=== PATIENT | female | born 1960 | race Caucasian/White ===

== ENCOUNTER 2018-02-27 08:09 | Day surgery (SDC) ==
[2018-02-27] MEDS ORDERED: LIDOCAINE 1% 20 ML MDV ID STA (09:06)
[2018-02-27] MEDS ORDERED: VERSED ONE (10:15)
[2018-02-27] MEDS ORDERED: DIPRIVAN 20 ML VIAL IVP ONE (10:15)
[2018-02-27] MEDS ORDERED: SUBLIMAZE ONE (10:15)
--- NOTE | 2018-02-28 10:34 | PN ---
PROCEDURE: EGD (ESOPHAGOGASTRODUODENOSCOPY) WITH CARTER DILATATION. ENDOSCOPIST: Chata BOLTON M.D. INDICATION: DYSPHAGIA. INSTRUMENT: GIFH-190. MEDICATION: PER ANESTHESIA. PROCEDURE: The patient was positioned for endoscopy. The oropharynx was sprayed with Cetacaine spray and the endoscope was advanced through the bite block into the esophagus and from there advanced to the duodenum. The duodenum was normal. The pylorus was patent. The antrum was normal. Retroflex exam reveals a normal cardia. The z-line was noted to be at 37 cm. The remaining esophagus was normal. A 48 Cam[place] Carter was passed with mild resistance at the GE junction. She tolerated the procedure without immediate complication. PLAN: 1. Repeat dilatation as needed. 2. Continue proton pump inhibitor MTDD
--- NOTE | 2018-02-28 10:41 | OP ---
PROCEDURE: EGD (ESOPHAGOGASTRODUODENOSCOPY) WITH CARTER DILATATION. ENDOSCOPIST: Chata BOLTON M.D. INDICATION: DYSPHAGIA. INSTRUMENT: GIFH-190. MEDICATION: PER ANESTHESIA. PROCEDURE: The patient was positioned for endoscopy. The oropharynx was sprayed with Cetacaine spray and the endoscope was advanced through the bite block into the esophagus and from there advanced to the duodenum. The duodenum was normal. The pylorus was patent. The antrum was normal. Retroflex exam reveals a normal cardia. The Z-line was noted to be at 37 cm. The remaining esophagus was normal. A 48 Kenyan Carter was passed with mild resistance at the GE junction. She tolerated the procedure without immediate complication. PLAN: 1. Repeat dilatation as needed. 2. Continue proton pump inhibitor MTDD
--- NOTE | 2018-02-28 10:51 | OP ---
PROCEDURE: COLONOSCOPY TO THE CECUM WITH COLD SNARE POLYPECTOMY. ENDOSCOPIST: Chata BOLTON M.D. INDICATION: HISTORY OF POLYPS. INSTRUMENT: [employer]-190. MEDICATION: PER ANESTHESIA. PROCEDURE: The patient was positioned for colonoscopy. The digital rectal exam was negative. The colonoscope was inserted through the anus and advanced to the cecum. The cecum was identified using the ileocecal valve and the appendiceal orifice as landmarks. The scope was slowly withdrawn through an adequately prepped colon. Peralta Bowel Prep Score = 9. A small polyp was removed using cold snare polypectomy at 50 cm. No other abnormalities were noted. Hemorrhoids were seen on retroflex exam. She tolerated the procedure without immediate complication. Withdrawal time 4 minutes and 47 seconds. PLAN: 1. Suggest repeat colonoscopy in 5 years. CC: DR. JOHN MACKAY
[2018-02-28 14:43] VITALS: BP 112/67; TEMP 98.5
== END 2018-02-27 11:10 | disposition home or self-care (01) ==
LOC: SURG 08:09
PROVIDERS: ATTEND Internal Medicine Gastroenterology
DX: Z09 Encounter for follow-up examination after completed treatment for conditions other than malignant neoplasm (principal); Z86.010 Personal history of colon polyps; K63.5 Polyp of colon; R13.19 Other dysphagia; K64.9 Unspecified hemorrhoids

== ENCOUNTER 2018-06-17 22:26 | Emergency (ER) ==
[2018-06-17 23:21] VITALS: BP 155/92; TEMP 97.3; BMI 26.4
--- NOTE | 2018-06-17 23:51 | DI ---
EXAM: Right hand, three views, 06/17/2018 HISTORY: Trauma COMPARISON: None. FINDINGS / IMPRESSION: Normal anatomic alignment is maintained. Visualized osseous structures appea r intact. There is no evidence of acute fracture or dislocation. No acute post traumatic osseous abnormality.
[2018-06-17] MEDS ORDERED: OXYCODONE PO STA (23:55)
--- NOTE | 2018-06-17 23:57 | ED.PDOC ---
General ED Provider: Dr. CELIO BELL Chief Complaint: Hand Pain/Injury Stated Complaint: Patient states that while she was lifting case of soda, truck door was open, hit right hand on corner to truck door. She has developed swelling, bruising and abrasion. There is no brake in skin. She iced it at home. Time Seen by Physician: 23:20 Mode of Arrival: Walk-In Information Source: Patient Primary Care Provider: CASSIDY LOPEZ Nursing and Triage Documentation Reviewed and Agree: Yes Does patient meet sepsis criteria?: No System Inflammatory Response Syndrome: Not Applicable Sepsis Protocol: For patient's 13 years and over: Temp is 96.8 and below OR 101 and greater Pulse >90 BPM Resp >20/minute Acutely Altered Mental Status Are patient's symptoms suggestive of a new infection, such as: -Pneumonia -Skin, Soft Tissue -Endocarditis -UTI -Bone, Joint Infection -Implantable Device -Acute Abdominal Infection -Wound Infection -Meningitis -Blood Stream Catheter Infection -Unknown Musculoskeletal Complaint Exam - Hand/Wrist Complaint/Exam Location of Pain: Reports: Right Mechanism of Injury: Reports: Trauma (with track Door ) Onset/Duration: 2 hours Symptoms Are: Still present Onset of Pain: Reports: Immediate Initial Severity: Moderate Current Severity: Moderate Location: Reports: Discrete (Dorsum of right hand ) Character: Reports: Dull, Aching, Throbbing Alleviating: Reports: Cold Aggravating: Reports: Movement Associated Signs and Symptoms: Reports: Swelling, Bruising Dominant Hand: Right Related Surgical History: Reports: None Hand/Wrist Findings: Present: Swelling, Ecchymosis Tenderness: Present: Carpal Compartment Syndrome Risk Factors: Present: Pain. Absent: Paralysis, Pallor, Pulselessness, Paresthesias Hand Picture: 1 - tender raised contusion with no skin brake down. Review of Systems - Review Of Systems Constitutional: Reports: No symptoms Eyes: Reports: No symptoms Ears, Nose, Mouth, Throat: Reports: No symptoms Respiratory: Reports: No symptoms Cardiac: Reports: No symptoms GI: Reports: No symptoms : Reports: No symptoms Musculoskeletal: Reports: Joint pain, Joint swelling, Muscle pain Skin: Reports: Bruising Neurological: Reports: No symptoms Endocrine: Reports: No symptoms Hematologic/Lymphatic: Reports: No symptoms All Other Systems: Reviewed and Negative Past Medical History - Past Medical History Endocrine: Reports: None Cardiovascular: Reports: OR, Hypertension Respiratory: Reports: COPD, Asthma Hematological: Reports: None Gastrointestinal: Reports: None Genitourinary: Reports: None Neuro/Psych: Reports: Anxiety, Depression Musculoskeletal: Reports: None Cancer: Reports: None Last Menstrual Period: 10 yrs ago - menopausal Other Pertinent Past Medical History: esophagial stricture, History of Lymes disease, pneumothorax - Surgical History General Surgical History: Reports: , Cholecystectomy, Tonsillectomy, CABG ([facility] 2013) - Family History Family History: Reports: None - Social History Smoking Status: Current every day smoker, Light tobacco smoker Hx Substance Use: No Alcohol Screening: Occasionally - Immunizations Tetanus Shot up to Date: No Physical Exam - Physical Exam Appearance: Well-appearing Pain Distress: Moderate Neck: Supple Respiratory: Airway patent, Breath sounds clear, Breath sounds equal, Respirations nonlabored Cardiovascular: RRR, Pulses normal, No rub, No murmur GI/: Soft, Nontender, No masses, Bowel sounds normal, No Organomegaly Musculoskeletal: Normal strength, Edema Skin: Warm, Dry Psychiatric: Anxious Interpretation - Radiology Interpretation Radiology Interpretation By: ED Physician Radiology Results: Negative Exam Interpreted: Other (x ray of right hand. ) Critical Care Note - Critical Care Note Total Time (mins): 0 Course - Course Orders, Labs, Meds: Orders Category Date Time Status CARLOS [ED CARLOS WRAP] .ONCE EMERGENCY 06/18/18 00:00 Active Oxycodone HCl [Oxycodone] MEDS 06/17/18 23:55 Discontinued 5 mg PO ONCE STA HAND, RIGHT 3 VIEWS Stat RADS 06/17/18 23:28 Completed Medications Discontinued Medications Generic Name Dose Route Start Last Admin Trade Name Freq PRN Reason Stop Dose Admin Oxycodone HCl 5 mg 06/17/18 23:55 06/18/18 00:10 Oxycodone PO 06/17/18 23:56 5 mg ONCE STA Administration Vital Signs: Temp Pulse Resp BP Pulse Ox 06/17/18 23:08 97.3 F L 60 18 155/92 H 93 L Departure - Departure Time of Disposition: 23:55 Disposition: HOME SELF-CARE Discharge Problem: Injury of hand, Hand pain Contusion of hand, right Qualifiers: Encounter type: initial encounter Qualified Code(s): S60.221A - Contusion of right hand, initial encounter Instructions: Contusion in Adults (ED) Condition: Stable Pt referred to PMD for follow-up: Yes IPMP verified?: No Additional Instructions: Take home Tylenol as needed for pain Follow up with PCP in 3 days Allergies/Adverse Reactions: Allergies codeine Adverse Reaction (Intermediate, Verified 06/17/18 23:21) Nausea, VOMITING CAN BECOME UNCONSCIOUS PER PT. Home Medications: Ambulatory Orders Alprazolam [Xanax] 0.25 mg PO BID 02/23/18 Amlodipine Besylate/Benazepril [Lotrel 5-20 mg Capsule] 1 tab PO DAILY 02/23/18 Aspirin [Aspirin EC] 1 tab PO DAILY 02/23/18 Cholecalciferol (Vitamin D3) [Vitamin D3] 1,000 unit PO DAILY 02/23/18 Clopidogrel Bisulfate [Plavix] 75 mg PO DAILY 02/23/18 Fluticasone Propionate [Flonase] 1 spray CHAVA DAILY PRN 02/23/18 Levocetirizine Dihydrochloride [Xyzal] 1 tab PO DAILY 02/23/18 Montelukast Sodium [Singulair] 1 tab PO DAILY 02/23/18 Multivitamin [Multi-Vitamin Daily] 1 tab PO DAILY 02/23/18 Pantoprazole Sodium [Protonix] 1 tab PO DAILY 02/23/18 Rosuvastatin Calcium [Crestor] 10 mg PO DAILY 02/23/18 Disposition Discussed With: Patient, Family
== END 2018-06-18 00:20 | disposition home or self-care (01) ==
LOC: ED 22:26
DX: S60.221A Contusion of right hand, initial encounter (principal); W22.8XXA Striking against or struck by other objects, initial encounter
CPT/HCPCS: 99282

== ENCOUNTER 2018-07-18 10:24 | Outpatient (CLI) ==
--- NOTE | 2018-07-18 11:35 | DI ---
Exam: Right hand three-view History: And pain Findings / impression: No acute bony or articular abnormality. 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 Mild osteoarthritic change of the remainder of the distal interphalangeal joints. Mild - moderate osteoarthritic change of the first carpal-metacarpal joint. No erosive changes are seen.
--- NOTE | 2018-07-18 11:36 | DI ---
EXAM: [place] three view HISTORY: Hand pain FINDINGS / IMPRESSION: No acute bony or articular abnormality is seen. Mild osteoarthritic change o f the first and second distal interphalangeal joint. Negative exam otherwise.
--- NOTE | 2018-07-18 11:53 | DI ---
EXAM: Single view the pelvis and two views of bilateral hips. History: Pelvic pain and bilateral hip pain. Findings: No acute fracture or dislocation. Bilateral hip joint spaces are relatively preserved. B ilateral common iliac artery stents. Degenerative changes within the lower lumbar spine. Impression: No acute osseous abnormality
== END 2018-07-18 10:25 | disposition home or self-care (01) ==
LOC: RAD 10:24
PROVIDERS: ATTEND Family Medicine
DX: M19.90 Unspecified osteoarthritis, unspecified site (principal); M25.551 Pain in right hip; M25.552 Pain in left hip; M79.641 Pain in right hand; M79.642 Pain in left hand

== ENCOUNTER 2024-08-06 10:25 | Observation (INO) ==
--- NOTE | 2024-08-06 10:33 | ED.PDOC ---
General ED Provider: Dr. CORRINA ARIZA MD Chief Complaint: Syncope Stated Complaint: Patient is a 63-year-old female that was reporting to the hospital for a colonoscopy this morning. Patient stated that she had done her bowel prep for the past 24 hours. She stated that upon arrival to the hospital she was anxious and she had a syncopal episode and outpatient waiting room. Her was with her and stated that he was able to hold onto her and help her to the ground. He stated that she was out for no longer than 5 to 10 seconds. He stated that this happens often when the patient gets very anxious. Patient was able to give a detailed history and stated that she has a history of cardiovascular disease and has had a aortic valve replacement. Patient denied any current chest pain or shortness of breath. Patient denied any nausea or vomiting. Patient denied any diaphoresis at the current time either. Patient stated that this happens sometimes when she gets very anxious and she felt like she was anxious for her colonoscopy this morning. Patient denied hitting her head during her syncopal episode and her confirmed this. Patient denies any headache, fever, sore throat, cough, or any other acute symptoms not currently mentioned in HPI. Patient is alert and oriented to person place and time. Patient has a GCS of 15. Time Seen by Provider: 08/06/24 10:29 Mode of Arrival: Walk-In Information Source: Patient Exam Limitations: No limitations Primary Care Provider: CASSIDY LOPEZ Nursing and Triage Documentation Reviewed and Agree: Yes Does Patient Take Opioids?: No Is Patient Opioid Naive?: No What is Opioid Naive?: *Opioid Naive implies the patient is not already taking opioids or not chronically receiving opioids on a daily basis. *PRN dosing is not "usually" associated with tolerance. *Patients are at higher risk of over-sedation and aspiration. Is Patient Opioid Tolerant?: No What is Opioid Tolerant?: *Opioid Tolerance implies less than the expected response to an opioid. *Acquired tolerance is defined by the patient taking 60mg of oral morphine daily (or equianalgesic dose of another opioid) for 1 week or more. *Often associated with chronic pain. *May take more than usual dose to achieve desired pain control. Review of Systems Review Of Systems Constitutional: Reports No symptoms Eyes: Reports No symptoms Ears, Nose, Mouth, Throat: Reports No symptoms Respiratory: Reports No symptoms Cardiac: Reports No symptoms GI: Reports No symptoms : Reports No symptoms Musculoskeletal: Reports No symptoms Skin: Reports No symptoms Neurological: Reports Other (Syncopal episode) Endocrine: Reports No symptoms Hematologic/Lymphatic: Reports No symptoms All Other Systems: Reviewed and Negative PFSH Female Reproductive History Menstrual Hx Hysterectomy: No Hx Tubal Ligation: Yes (1993) Physical Exam Physical Exam Appearance: Reports Well-appearing, No pain distress and Well-nourished Ill-appearing: None Pain Distress: None Eyes: Reports INGRID, EOMI and Conjunctiva clear ENT: Reports Ears normal, Nose normal and Oropharynx normal Neck: Supple Respiratory: Reports Airway patent, Breath sounds clear, Breath sounds equal and Respirations nonlabored Cardiovascular: Reports RRR, Pulses normal, No rub and Murmur (Patient has a systolic S1 murmur.) GI/: Reports Soft, Nontender, No masses, Bowel sounds normal and No Organomegaly Musculoskeletal: Reports Normal strength, ROM intact, No edema and No calf tenderness Skin: Reports Warm, Dry and Normal color Neurological: Reports Sensation intact, Motor intact, Reflexes intact, Cranial nerves intact, Alert and Oriented Psychiatric: Reports Affect appropriate and Mood appropriate Course Course 08/06/24 10:43 08/06/24 10:43 Orders, Labs, Meds: Lab Review 08/06/24 10:43 WBC 6.77 RBC 5.03 Hgb 14.0 Hct 42.4 MCV 84.3 MCH 27.8 MCHC 33.0 RDW Coeff of Suzi 12.6 Plt Count 250 Immature Gran % (Auto) 0.1 Neut % (Auto) 63.1 Lymph % (Auto) 27.0 [place] % (Auto) 8.3 Eos % (Auto) 1.2 Baso % (Auto) 0.3 Neut # (Auto) 4.3 Lymph # (Auto) 1.8 [place] # (Auto) 0.6 Eos # (Auto) 0.1 Baso # (Auto) 0.0 Immature Gran # (Auto) 0.0 Sodium 135.4 Potassium 2.83 L Chloride 98.2 Carbon Dioxide 31.8 H Anion Gap 8.23 BUN 3.9 L Creatinine 0.55 L Estimated GFR (MDRD) 112.00 BUN/Creatinine Ratio 7.09 Glucose 108.2 H Calcium 9.80 Magnesium 2.04 Total Bilirubin 0.59 AST 28.3 ALT 20.4 Alkaline Phosphatase 74.7 Troponin I 0.033 Total Protein 7.84 Albumin 4.84 Globulin 3.00 Albumin/Globulin Ratio 1.61 Orders Category Date Time Status EKG-(ED ONLY) Stat CARDIO 08/06/24 10:30 Ordered ED SURVEILLANCE SYSTEMS ANALYST APPLIED .ONCE EMERGENCY 08/06/24 10:30 Active CBC W/ AUTO DIFF Stat LAB 08/06/24 10:43 Completed COMPREHENSIVE METABOLIC PANEL Stat LAB 08/06/24 10:43 Completed FLU A/B MOLECULAR Stat LAB 08/06/24 10:40 Received LACTIC ACID Stat LAB 08/06/24 10:43 Received MAGNESIUM Stat LAB 08/06/24 10:43 Completed SARS COV-2 RNA RAPID BI Stat LAB 08/06/24 10:40 Received TROPONIN I Stat LAB 08/06/24 10:43 Completed Potassium Chloride [K-Dur] Meds 08/06/24 11:36 Discontinued 40 meq PO ONCE ONE Potassium Chloride [Potassium Chloride 20 Meq/100 ml Meds 08/06/24 11:36 Active Premix] 20 meq in 100 ml IV ONCE Sodium Chloride 0.9% [Sodium Chloride] 500 ml Meds 08/06/24 10:30 Discontinued IV BOLUS CHEST, 1V AP ONLY Stat RADS 08/06/24 10:30 Completed Medications Generic Name Dose Route Start Last Admin Trade Name Freq PRN Reason Stop Dose Admin Potassium Chloride 20 meq in 100 mls @ 50 mls/hr 08/06/24 11:36 Potassium Chloride 20 Meq/100 Ml Premix IV 08/06/24 13:35 ONCE ONE Discontinued Medications Generic Name Dose Route Start Last Admin Trade Name Freq PRN Reason Stop Dose Admin Sodium Chloride 500 mls @ 500 mls/hr 08/06/24 10:30 08/06/24 11:04 Sodium Chloride IV 08/06/24 11:29 500 mls/hr BOLUS ONE Administration Potassium Chloride 40 meq 08/06/24 11:36 Potassium Chloride 20 Meq Tab PO 08/06/24 11:37 ONCE ONE Vital Signs: Temp Pulse Resp BP Pulse Ox 08/06/24 10:29 98.4 F 68 20 123/66 94 L RICHMOND Risk Score R[place] Risk Score: Risk Score Odds of by 30D 0 0.1 (0.1-0.2) 1 0.3 (0.2-0.3) 2 0.4 (0.3-0.5) 3 0.7 (0.6-0.9) 4 1.2 (1.0-1.5) 5 2.2 (1.9-2.6) 6 3.0 (2.5-3.6) 7 4.8 (3.8-6.1) Physician Progress Note: Patient is a 63-year-old female that was reporting to the hospital for a colonoscopy this morning. Patient stated that she had done her bowel prep for the past 24 hours. She stated that upon arrival to the hospital she was anxious and she had a syncopal episode and outpatient waiting room. Her was with her and stated that he was able to hold onto her and help her to the ground. He stated that she was out for no longer than 5 to 10 seconds. He stated that this happens often when the patient gets very anxious. Patient was able to give a detailed history and stated that she has a history of cardiovascular disease and has had a aortic valve replacement. Patient denied any current chest pain or shortness of breath. Patient denied any nausea or vomiting. Patient denied any diaphoresis at the current time either. Patient stated that this happens sometimes when she gets very anxious and she felt like she was anxious for her colonoscopy this morning. Patient denied hitting her head during her syncopal episode and her confirmed this. Patient denies any headache, fever, sore throat, cough, or any other acute symptoms not currently mentioned in HPI. Patient is alert and oriented to person place and time. Patient has a GCS of 15. -Will order a CT of the head as the patient had a syncopal episode. -Will give the patient IV fluids 500 mL bolus normal saline as she appears to be dehydrated. -Will order baseline labs. Will order troponin. Will order an EKG. -Patient has refused a CT of the head and states that she feels well and wants to go on with her colonoscopy. Depending on the patient's labs and status upon completion of her workup we will make a determination on whether patient should continue with colonoscopy upon discharge. -Patient is EKG shows sinus bradycardia with a right bundle branch block. No acute ST elevations noted. Ventricular rate of 53 bpm. EKG was interpreted by the ER physician. -CBC is unremarkable. Patient's potassium is 2.83. Will replace potassium with 20 mEq IV potassium. Will give p.o. potassium 40 mEq. Troponins negative. -Chest x-ray shows no acute cardiopulmonary disease. This is interpreted by the ER physician. [phone]) contacted the hospitalist for admission. Left a message with her voicemail. Waiting for callback. [phone]) spoke to the hospitalist at [facility]. And discussed the patient's potassium being low and syncopal episode. She has agreed admit the patient for observation. Discharge Plan Discharge Patient Disposition: PLACED OBSERVATION Discharge Problem: Syncope, Dehydration, Acute hypokalemia, History of aortic valve replacement Did you review [place] PLATE WORKER for ALL controlled substances?: Not Applicable ED Provider: CORRINA ARIZA Condition: Stable
[2024-08-06 10:47] LABS: BASOPHILS % (AUTO) 0.3 % (0.0-3.0); EOSINOPHILS # (AUTO) 0.1 K/ul (0.0-0.7); EOSINOPHILS % (AUTO) 1.2 % (0.0-7.0); HEMATOCRIT 42.4 % (37.0-47.0); IMMATURE GRANULOCYTE % (AUTO) 0.1 % (0.0-5.0); LYMPHOCYTES # (AUTO) 1.8 K/uL (0.60-3.4); MEAN CORPUSCULAR HEMOGLOBIN 27.8 pg (27.0-31.0); MEAN CORPUSCULAR VOLUME 84.3 fl (81.0-99.0); MONOCYTES # (AUTO) 0.6 K/uL (0.4-2.0); MONOCYTES % (AUTO) 8.3 (0-10); NEUTROPHILS # (AUTO) 4.3 K/ul (2.0-6.9); NEUTROPHILS % (AUTO) 63.1 % (42.2-75.2); PLATELET COUNT 250 10^3/uL (140-440); RDW COEFFICIENT OF VARIATION 12.6 % (11.6-14.8); RED BLOOD COUNT 5.03 10^6/ul (4.20-5.40); WHITE BLOOD COUNT 6.77 K/ul (4.6-10.2)
[2024-08-06] MEDS: SODIUM CHLORIDE 500 ML IV ONE (11:04)
[2024-08-06 11:07] LABS: ALANINE AMINOTRANSFERASE 20.4 U/L (0-35); ALBUMIN 4.84 g/dL (3.5-5.0); ALKALINE PHOSPHATASE 74.7 U/L (53-141); ASPARTATE AMINO TRANSFERASE 28.3 U/L (14-36); BILIRUBIN,TOTAL 0.59 mg/dL (0.2-1.3); BLOOD UREA NITROGEN 3.9 mg/dL (7-17); CALCIUM 9.8 mg/dL (8.4-10.2); CARBON DIOXIDE 31.8 mmol/L (22-30.0); CHLORIDE 98.2 mmol/L (98-107); CREATININE 0.55 mg/dL (0.60-1.30); GLUCOSE 108.2 mg/dL (74-106); MAGNESIUM 2.04 mg/dL (1.6-2.3); POTASSIUM 2.83 mmol/L (3.5-5.1); SODIUM 135.4 mmol/L (134.5-145); TOTAL PROTEIN 7.84 g/dL (6.3-8.2)
[2024-08-06 11:18] LABS: TROPONIN I 0.033 ng/ml (0.0000-0.120)
--- NOTE | 2024-08-06 11:24 | DI ---
EXAM: CHEST ONE VIEW, FRONTAL VIEW ONLY. HISTORY: Syncope. COMPARISON: None. FINDINGS: The heart size is normal. CABG hardware noted. Implantable loop recorder seen over the l ower left chest. Atherosclerotic calcifications are present. There is no pulmonary vascular congest ion. The lungs are clear. No pleural effusion or pneumothorax is seen. No acute osseous abnormalit y is identified. Degenerative changes present in the spine and shoulders. IMPRESSION: No acute cardiopulmonary process.
[2024-08-06 11:53] LABS: MOLECULAR FLU A NEGATIVE BY NAAT (NEGATIVE); MOLECULAR FLU B NEGATIVE BY NAAT (NEGATIVE); SARS COV-2 RNA RAPID NAAT NEGATIVE (NEGATIVE)
[2024-08-06] MEDS: K-DUR PO ONE (13:16)
[2024-08-06] MEDS: POTASSIUM CHLORIDE 20 MEQ/100 ML PREMIX 20 MEQ/100 ML BAG IV ONE (13:18)
[2024-08-06 13:49] VITALS: BMI 25.8
--- NOTE | 2024-08-06 13:55 | PCM ---
Date of Service Date Seen by Provider: 08/06/24 Time Seen by Provider: 13:45 Admit Day/Time Admission Date: 08/06/24 Reason for Admission Chief Complaint: ACUTE HYPOKALEMIA; DEHYDRATOIN; SYNCOPAL EPISODE Hospital Provider Hospital [facility] AFUA CASH[facility] History of Present Illness History of Present Illness: 63 yo female presented to the ER after experiencing a "syncopal" episode in the main lobby. Patient presented to the hospital for routine colonoscopy. Reports that when she is anxious or under stress she has these episodes in which she blacks out and can't speak. Denies chest pain, sob, dizziness, or other symptoms. Has not had any other episodes since. ER work-up showed low potassium of 2.8 but rest of work-up negative. Patient refused head CT. Patient was sent to surgery to have colonoscopy prior to admission per patient request. Patient tolerated well. Only has complaints of weakness and being hungry at this time. She was given 40 mEq PO of KCL and 20 mEq IV. Admitted to med/surg observation. Case Discussed With Case Discussed With: Patient's case was discussed with the ER Physicians, Dr. Lowe. [facility] Medical History PAD (peripheral artery disease) I73.9 - Peripheral vascular disease, unspecified (ICD-10) Cholecystitis K81.9 - Cholecystitis, unspecified (ICD-10) History of pneumothorax Z87.09 - Personal history of other diseases of the respiratory system (ICD- 10) Arthritis M19.90 - Unspecified osteoarthritis, unspecified site (ICD-10) Esophageal stricture K22.2 - Esophageal obstruction (ICD-10) Anxiety F41.9 - Anxiety disorder, unspecified (ICD-10) Depression F32.A - Depression, unspecified (ICD-10) Asthma J45.909 - Unspecified asthma, uncomplicated (ICD-10) COPD (chronic obstructive pulmonary disease) J44.9 - Chronic obstructive pulmonary disease, unspecified (ICD-10) HTN (hypertension) I10 - Essential (primary) hypertension (ICD-10) Acute myocardial infarction I21.9 - Acute myocardial infarction, unspecified (ICD-10) Surgical History History of Z98.891 - History of uterine scar from previous surgery (ICD-10) H/O heart artery stent Z95.5 - Presence of coronary angioplasty implant and graft (ICD-10) S/P triple vessel bypass Z95.1 - Presence of aortocoronary bypass graft (ICD-10) Family History BROTHER Heart disease (organic) Allergies Allergies Allergy/AdvReac Type Severity Reaction Status Date / Time codeine AdvReac Intermediate Nausea, Verified 08/06/24 14:05 VOMITING ranolazine AdvReac Intermediate Verified 08/06/24 14:05 acetaminophen [From Vicodin] AdvReac Verified 08/06/24 14:05 hydrocodone [From Vicodin] AdvReac Verified 08/06/24 14:05 Current Medications Home Medications alprazolam 0.25 mg tablet 0.25 mg PO BID PRN anxiety 02/23/18 [History Confirmed 08/06/24 Last Taken 05/28/24] aspirin 81 mg tablet,delayed release 1 tab PO DAILY 02/23/18 [History Confirmed 08/06/24 Last Taken Unknown] fluticasone propionate 50 mcg/actuation nasal spray,suspension 1 spray intranasal DAILY PRN Nasal Congestion 02/23/18 [History Confirmed 08/06/24 Last Taken Unknown] montelukast 10 mg tablet (Singulair) 1 tab PO DAILY 02/23/18 [History Confirmed 08/06/24 Last Taken Unknown] multivitamin (Daily Multi-Vitamin tablet) 1 tab PO DAILY 02/23/18 [History Confirmed 08/06/24 Last Taken Unknown] pantoprazole 40 mg tablet,delayed release (Protonix) 1 tab PO DAILY 02/23/18 [History Confirmed 08/06/24 Last Taken Unknown] rosuvastatin 10 mg tablet (Crestor) 40 mg PO DAILY 02/23/18 [History Confirmed 08/06/24 Last Taken Unknown] apixaban 5 mg tablet (Eliquis) 5 mg PO BID 08/02/24 [History Confirmed 08/06/24 Last Taken Unknown] carvedilol 3.125 mg tablet (Coreg) 3.125 mg PO BID 08/02/24 [History Confirmed 08/06/24 Last Taken Unknown] ezetimibe 10 mg tablet (Zetia) 10 mg PO DAILY 08/02/24 [History Confirmed 08/06/24 Last Taken Unknown] hydrochlorothiazide 25 mg tablet 25 mg PO DAILY 08/02/24 [History Confirmed 08/06/24 Last Taken Unknown] loratadine 10 mg tablet (Claritin) 10 mg PO DAILY 08/02/24 [History Confirmed 08/06/24 Last Taken Unknown] Home Sodium Chloride (Sodium Chloride) 1,000 mls @ 75 mls/hr IV .[id number] ALIX Discontinued Medications Sodium Chloride (Sodium Chloride) 500 mls @ 500 mls/hr IV BOLUS ONE Stop: 08/06/24 11:29 Last Infusion: 08/06/24 13:18 Dose: Infused Potassium Chloride (Potassium Chloride 20 Meq/100 Ml Premix) 20 meq in 100 mls @ 50 mls/hr IV ONCE ONE Stop: 08/06/24 13:35 Last Admin: 08/06/24 13:18 Dose: 50 mls/hr Potassium Chloride (Potassium Chloride 20 Meq Tab) 40 meq PO ONCE ONE Stop: 08/06/24 11:37 Last Admin: 08/06/24 13:16 Dose: 40 meq Opioid Naive vs. Tolerant Does Patient Take Opioids?: No Is Patient Opioid Naive?: Yes What is Opioid Naive?: *Opioid Naive implies the patient is not already taking opioids or not chronically receiving opioids on a daily basis. *PRN dosing is not "usually" associated with tolerance. *Patients are at higher risk of over-sedation and aspiration. Is Patient Opioid Tolerant?: No What is Opioid Tolerant?: *Opioid Tolerance implies less than the expected response to an opioid. *Acquired tolerance is defined by the patient taking 60mg of oral morphine daily (or equianalgesic dose of another opioid) for 1 week or more. *Often associated with chronic pain. *May take more than usual dose to achieve desired pain control. Review of Systems Constitutional: Reports Weakness Head: Reports Normocephalic Eyes: Reports No symptoms Ears: Reports No symptoms Nose: Reports No symptoms Mouth: Reports No symptoms Throat: Reports No symptoms Cardiovascular: Reports Syncope Respiratory: Reports No symptoms Gastrointestinal: Reports No symptoms Genitourinary: Reports No Symptoms Musculoskeletal: Reports No symptoms Endocrine: Reports No symptoms Hematology: Reports No symptoms Immunology: Reports No symptoms Neurological: Reports No symptoms Psychiatric: Reports No symptoms Physical examination Most Recent Vital Signs: Most Recent Vital Signs Temperature 98.4 F 08/06/24 10:29 Temperature Source Temporal Artery Scan 08/06/24 10:29 Pulse Rate 68 08/06/24 10:29 Respiratory Rate 20 08/06/24 10:29 Blood Pressure 123/66 08/06/24 10:29 O2 Sat by Pulse Oximetry 94 L 08/06/24 10:29 Height 5 ft 1 in 08/06/24 10:29 Weight 64.6 kg 08/06/24 10:29 Appearance: Positive No Apparent Distress and Alert and Oriented x3 Skin: Positive Warm and Good Turgor HEENT: Positive Normocephalic and PERRLA Neck: Positive Supple and Midline Trachea Chest/Lungs: Positive Symmetrical With Equal Breath Sounds, Clear to Auscultation Bilaterally and Good Air Movement all 4 Lung [place] Heart: Positive RRR, Pulses Normal and Murmur GI/: Positive Soft, Nontender, Bowel Sounds Normal and No Distention Musculoskeletal: Positive Normal Gait and Station Extremities: Positive Intact Peripheral Pulses, Stable Joints Without Laxity and Good ROM in All Joints Neurological: Positive Sensation Intact, Motor intact, Alert, Oriented and Muscle Strength 5/5 in Upper and Lower Extremities Bilaterally Psychiatric: Positive Oriented x4, Appropriate Mood, Appropriate Affect, Intact Memory, Good Short-Term Recall, Good Long-Term Recall, Normal Judgement and Normal Insight Labs This Visit Labs This Visit: Labs This Visit 08/06/24 08/06/24 10:40 10:43 WBC 6.77 RBC 5.03 Hgb 14.0 Hct 42.4 MCV 84.3 MCH 27.8 MCHC 33.0 RDW Coeff of Suzi 12.6 Plt Count 250 Immature Gran % (Auto) 0.1 Neut % (Auto) 63.1 Lymph % (Auto) 27.0 [place] % (Auto) 8.3 Eos % (Auto) 1.2 Baso % (Auto) 0.3 Neut # (Auto) 4.3 Lymph # (Auto) 1.8 [place] # (Auto) 0.6 Eos # (Auto) 0.1 Baso # (Auto) 0.0 Immature Gran # (Auto) 0.0 Sodium 135.4 Potassium 2.83 L Chloride 98.2 Carbon Dioxide 31.8 H Anion Gap 8.23 BUN 3.9 L Creatinine 0.55 L Estimated GFR (MDRD) 112.00 BUN/Creatinine Ratio 7.09 Glucose 108.2 H Lactic Acid 1.57 Calcium 9.80 Magnesium 2.04 Total Bilirubin 0.59 AST 28.3 ALT 20.4 Alkaline Phosphatase 74.7 Troponin I 0.033 Total Protein 7.84 Albumin 4.84 Globulin 3.00 Albumin/Globulin Ratio 1.61 Influ A Molecular Assay Negative by naat Influ B Molecular Assay Negative by naat SARS CoV-2 RNA Rapid BI Negative EKG Interpretation EKG Interpretation: Sinus nate rate 57 Review Statement Review Statement: I have independently reviewed and interpreted the labs/EKGs/imaging that were ordered by the ER provider. I have reviewed all outside records that are available currently in our EMR including imaging/notes/labs from previous visits. Plan Plan: 1. Syncopal episode - orthostatic vitals Q4H, telemetry, checking mag, repeat potassium in am 2. Hypokalemia, mild - replace and monitor, telemetry 3. Hypertension - chronic, continue home medications 4. H/O Aortic Valve replacement - continue home medications 5. COPD - chronic, wears 2.5L oxygen at bedtime DVT Prophylaxis: Carley Time Spent: Greater than 80 minutes spent with patient, 50% of the time spent with this patient was devoted to counseling and coordination of care. [facility]annin minutes spent discussing advance care planning. Disposition: Admit to: Med/surg Observation Full Code Discussed Plan of Care with Dr. Mike Caban.
[2024-08-06] MEDS ORDERED: FLONASE NAS PRN (14:16)
[2024-08-06] MEDS: SODIUM CHLORIDE 1,000 ML IV SCH (15:38)
[2024-08-06] MEDS: COREG PO SCH (17:17)
[2024-08-06] MEDS: ZETIA PO SCH (20:29)
[2024-08-06] MEDS: CLARITIN PO SCH (20:29)
[2024-08-06] MEDS: SINGULAIR PO SCH (20:29)
[2024-08-06] MEDS: CRESTOR PO SCH (20:29)
[2024-08-06] MEDS: XANAX PO PRN (20:29)
[2024-08-06] MEDS: ELIQUIS PO SCH (20:29)
[2024-08-07] MEDS: PROTONIX PO SCH (05:08)
[2024-08-07 05:19] LABS: BASOPHILS % (AUTO) 0.2 % (0.0-3.0); EOSINOPHILS # (AUTO) 0.1 K/ul (0.0-0.7); EOSINOPHILS % (AUTO) 0.5 % (0.0-7.0); HEMOGLOBIN 12.6 g/dl (12.0-16.0); IMMATURE GRANULOCYTE % (AUTO) 0.2 % (0.0-5.0); LYMPHOCYTES # (AUTO) 2.4 K/uL (0.60-3.4); LYMPHOCYTES % (AUTO) 22.2 (10.0-50.0); MEAN CORPUSCULAR HEMOGLOBIN 28.4 pg (27.0-31.0); MEAN CORPUSCULAR HGB CONC 33.2 (31.8-35.4); MEAN CORPUSCULAR VOLUME 85.8 fl (81.0-99.0); MONOCYTES # (AUTO) 0.9 K/uL (0.4-2.0); MONOCYTES % (AUTO) 8.3 (0-10); NEUTROPHILS # (AUTO) 7.4 K/ul (2.0-6.9); NEUTROPHILS % (AUTO) 68.6 % (42.2-75.2); PLATELET COUNT 211 10^3/uL (140-440); RDW COEFFICIENT OF VARIATION 12.7 % (11.6-14.8); RED BLOOD COUNT 4.43 10^6/ul (4.20-5.40); WHITE BLOOD COUNT 10.74 K/ul (4.6-10.2)
[2024-08-07 05:38] LABS: ALANINE AMINOTRANSFERASE 16.2 U/L (0-35); ALBUMIN 3.97 g/dL (3.5-5.0); ALKALINE PHOSPHATASE 56.4 U/L (53-141); ASPARTATE AMINO TRANSFERASE 25.5 U/L (14-36); BILIRUBIN,TOTAL 0.52 mg/dL (0.2-1.3); BLOOD UREA NITROGEN 5.4 mg/dL (7-17); CALCIUM 8.88 mg/dL (8.4-10.2); CARBON DIOXIDE 26.6 mmol/L (22-30.0); CHLORIDE 107.5 mmol/L (98-107); CREATININE 0.56 mg/dL (0.60-1.30); POTASSIUM 3.62 mmol/L (3.5-5.1); SODIUM 136.8 mmol/L (134.5-145); TOTAL PROTEIN 6.56 g/dL (6.3-8.2)
[2024-08-07] MEDS: ASPIRIN EC PO SCH (08:05)
[2024-08-07] MEDS: HYDROCHLOROTHIAZIDE PO SCH (08:05)
[2024-08-07] MEDS: MULTIVITAMIN TABLET PO SCH (08:05)
[2024-08-07 08:06] VITALS: RESP 18
--- NOTE | 2024-08-07 08:51 | DCSUM ---
Admission Date Admission Date: 08/06/24 Discharge Date Discharge Date: 08/07/24 Admission Diagnosis Admission Diagnosis: 1. Syncopal episode 2. Hypokalemia 3. Hypertension 4. H/O Aortic Valve replacement 5. COPD Discharge Diagnosis Discharge Diagnosis: 1. Syncopal episode - Resolved 2. Hypokalemia - Resolved 3. Hypertension - chronic, stable 4. H/O Aortic Valve replacement - chronic stable 5. COPD - chronic stable Hospital Provider Hospital Provider: AFUA CASH, [facility] Summary of History and Physical Summary of History and Physical: 63 yo female presented to the ER after experiencing a "syncopal" episode in the main lobby. Patient presented to the hospital for routine colonoscopy. Reports that when she is anxious or under stress she has these episodes in which she blacks out and can't speak. Denies chest pain, sob, dizziness, or other symptoms. Has not had any other episodes since. ER work-up showed low potassium of 2.8 but rest of work-up negative. Patient refused head CT. Patient was sent to surgery to have colonoscopy prior to admission per patient request. Patient tolerated well. Only has complaints of weakness and being hungry at this time. She was given 40 mEq PO of KCL and 20 mEq IV. Admitted to med/surg observation. Hospital Course Subjective: After patient was worked up for syncope in ER, patient requested for colonoscopy to be completed since prep had already been done. Procedure completed without complication. No further episodes during stay. Denies dizziness, chest pain, or other symptoms. Orthostatic vitals negative. Has cramping in lower abdomen and feels the need to pass gas post colonscopy. Potassium replaced yesterday and normalized this am. Received IV fluids until tolerating oral intake well. No changes to home medications during stay. Appearance: Pleasant, No Apparent Distress and Alert HEENT: MMM, Supple and No JVD CVS: No Murmur Abdomen: Soft, Non-Tender and No Distention Respiratory: No Dyspnea Extremities: No Edema Vital Signs: Most Recent Vital Signs Temperature 98.7 F 08/07/24 07:25 Temperature Source Temporal Artery Scan 08/07/24 07:25 Temperature Source Temporal Artery Scan 08/06/24 10:29 Pulse Rate 58 L 08/07/24 07:25 Respiratory Rate 18 08/07/24 07:25 Blood Pressure 124/71 08/07/24 07:25 Blood Pressure Mean 88 08/07/24 07:25 Blood Pressure Left Arm 147/78 08/06/24 13:30 Blood Pressure Location Left Arm 08/07/24 07:25 Blood Pressure Position Sitting 08/07/24 07:25 O2 Sat by Pulse Oximetry 94 L 08/07/24 07:25 Oxygen Delivery Method Room Air 08/07/24 07:25 Oxygen Flow Rate 2.5 08/06/24 20:47 Fraction of Inspired Oxygen (FIO2) 2 08/07/24 05:09 Height 5 ft 1 in 08/06/24 13:30 Weight 62 kg 08/06/24 13:30 Telemetry Type Remote Telemetry 08/07/24 07:00 Telemetry Monitoring Continues 08/07/24 07:00 Telemetry Heart Rate 56 L 08/07/24 07:00 EKG WA Interval 0.18 08/07/24 07:00 EKG QRS Interval 0.07 08/07/24 07:00 Telemetry Strip Reading SB 08/07/24 07:00 Lab Results Last 24 Hours: 08/07/24 08/06/24 08/06/24 05:08 13:58 10:43 WBC 10.74 H 6.77 RBC 4.43 5.03 Hgb 12.6 14.0 Hct 38.0 42.4 MCV 85.8 84.3 MCH 28.4 27.8 MCHC 33.2 33.0 RDW Coeff of Suzi 12.7 12.6 Plt Count 211 250 Immature Gran % (Auto) 0.2 0.1 Neut % (Auto) 68.6 63.1 Lymph % (Auto) 22.2 27.0 [place] % (Auto) 8.3 8.3 Eos % (Auto) 0.5 1.2 Baso % (Auto) 0.2 0.3 Neut # (Auto) 7.4 H 4.3 Lymph # (Auto) 2.4 1.8 [place] # (Auto) 0.9 0.6 Eos # (Auto) 0.1 0.1 Baso # (Auto) 0.0 0.0 Immature Gran # (Auto) 0.0 0.0 Sodium 136.8 135.4 Potassium 3.62 2.83 L Chloride 107.5 H 98.2 Carbon Dioxide 26.6 31.8 H Anion Gap 6.32 8.23 BUN 5.4 L 3.9 L Creatinine 0.56 L 0.55 L Estimated GFR (MDRD) 109.00 112.00 BUN/Creatinine Ratio 9.64 7.09 Glucose 96.0 108.2 H Lactic Acid 1.57 Calcium 8.88 9.80 Magnesium 2.03 2.04 Total Bilirubin 0.52 0.59 AST 25.5 28.3 ALT 16.2 20.4 Alkaline Phosphatase 56.4 74.7 Troponin I 0.033 Total Protein 6.56 7.84 Albumin 3.97 4.84 Globulin 2.59 3.00 Albumin/Globulin Ratio 1.53 1.61 Influ A Molecular Assay Influ B Molecular Assay SARS CoV-2 RNA Rapid BI 08/06/24 10:40 WBC RBC Hgb Hct MCV MCH MCHC RDW Coeff of Suzi Plt Count Immature Gran % (Auto) Neut % (Auto) Lymph % (Auto) [place] % (Auto) Eos % (Auto) Baso % (Auto) Neut # (Auto) Lymph # (Auto) [place] # (Auto) Eos # (Auto) Baso # (Auto) Immature Gran # (Auto) Sodium Potassium Chloride Carbon Dioxide Anion Gap BUN Creatinine Estimated GFR (MDRD) BUN/Creatinine Ratio Glucose Lactic Acid Calcium Magnesium Total Bilirubin AST ALT Alkaline Phosphatase Troponin I Total Protein Albumin Globulin Albumin/Globulin Ratio Influ A Molecular Assay Negative by naat Influ B Molecular Assay Negative by naat SARS CoV-2 RNA Rapid BI Negative Discharge Instructions Discharge Planning: Discharge Planning > 40 minutes If patient is discharged with left ventricular systolic dysfunction: NA Discharged with a beta srikanth? [] If no, why not? [] Discharged with an timur/arb? [] If no, why not? [] Diagnosis: Syncope, Hypokalemia Diet: Cardiac diet Activity: as tolerated, change positions slowly Follow-up with PCP this week. Discharge Medications: Medications at Discharge (Home Meds & RX) alprazolam 0.25 mg tablet 0.25 mg PO TID PRN anxiety 02/23/18 aspirin 81 mg tablet,delayed release 1 tab PO DAILY 02/23/18 fluticasone propionate 50 mcg/actuation nasal spray,suspension 1 spray intranasal DAILY PRN Nasal Congestion 02/23/18 montelukast 10 mg tablet (Singulair) 1 tab PO DAILY 02/23/18 multivitamin (Daily Multi-Vitamin tablet) 1 tab PO DAILY 02/23/18 pantoprazole 40 mg tablet,delayed release (Protonix) 1 tab PO DAILY 02/23/18 rosuvastatin 10 mg tablet (Crestor) 40 mg PO DAILY 02/23/18 apixaban 5 mg tablet (Eliquis) 5 mg PO BID 08/02/24 carvedilol 3.125 mg tablet (Coreg) 3.125 mg PO BID 08/02/24 ezetimibe 10 mg tablet (Zetia) 10 mg PO DAILY 08/02/24 hydrochlorothiazide 25 mg tablet 25 mg PO DAILY 08/02/24 loratadine 10 mg tablet (Claritin) 10 mg PO DAILY 08/02/24 Discharge Plan Discharge Discharge Orders: Discharge Patient (ONCE); Ordered 08/07/24 Ordered By: RUDOLPH IVERSON Activity Restrictions/Additional Instructions: Diagnosis: Syncope, Hypokalemia Diet: Cardiac diet Activity: as tolerated, change positions slowly Follow-up with PCP this week. Instructions: Hypokalemia (GEN), Syncope (ED) Patient Disposition: HOME WITH FAMILY CARE Prescriptions: Continued carvedilol [Coreg] 3.125 mg tablet 3.125 mg PO BID Rx Instructions: must administer with a meal/food loratadine [Claritin] 10 mg tablet 10 mg PO DAILY Eliquis 5 mg tablet 5 mg PO BID hydrochlorothiazide 25 mg tablet 25 mg PO DAILY ezetimibe [Zetia] 10 mg tablet 10 mg PO DAILY alprazolam 0.25 MG tablet 0.25 mg PO TID PRN (Reason: anxiety) multivitamin [Daily Multi-Vitamin] 1 EACH tablet 1 tab PO DAILY aspirin 81 MG tablet,delayed release (DR/EC) 1 tab PO DAILY montelukast [Singulair] 10 MG tablet 1 tab PO DAILY rosuvastatin [Crestor] 10 MG tablet 40 mg PO DAILY pantoprazole [Protonix] 40 MG tablet,delayed release (DR/EC) 1 tab PO DAILY fluticasone propionate 1 SPRAY spray,suspension 1 spray intranasal DAILY PRN (Reason: Nasal Congestion) Did you review [place] SEISMOGRAPH CHIEF for ALL controlled substances?: No Discussed opioids are addictive and Narcan is available by prescription or from pharmacy.: No Condition: Stable
[2024-08-07] MEDS ORDERED: CLARITIN PO SCH (09:00)
[2024-08-07] MEDS ORDERED: CRESTOR PO SCH (09:00)
[2024-08-07] MEDS ORDERED: ZETIA PO SCH (09:00)
[2024-08-07] MEDS ORDERED: SINGULAIR PO SCH (09:00)
[2024-08-07 09:48] VITALS: BP 119/63; PULSE 68; TEMP 99.5
== END 2024-08-07 10:30 | disposition home or self-care (01) ==
LOC: ED 10:25 → MEDSURG B 10:25
PROVIDERS: ADMIT Hospitalist; ATTEND Nurse Practitioner Family